=== PATIENT | male | born 1950 | race Caucasian/White ===

== ENCOUNTER 2016-10-12 13:14 | Outpatient (CLI) | payer MEDICARE, OTHER | END 2016-10-12 23:59 | DX: N05.9 Unspecified nephritic syndrome with unspecified morphologic changes (principal); D70.9 Neutropenia, unspecified; R80.9 Proteinuria, unspecified; D63.1 Anemia in chronic kidney disease ==

== ENCOUNTER 2017-01-21 11:41 | Outpatient (CLI) | payer MEDICARE, OTHER ==
--- NOTE | 2017-01-21 13:38 | CT Report ---
LOW-DOSE CT CHEST FOR LUNG CANCER SCREENIN01/21/2017 CLINICAL INDICATION: A 67-year-old asymptomatic current smoker with 45-pack year history of smoking for screening. TECHNIQUE: Axial CT images of the chest were obtained without intravenous contrast, using low-dose s creening technique. FINDINGS: The heart and great vessels demonstrate mild atherosclerotic calcification. No hilar or m ediastinal lymphadenopathy is present. The lungs are clear. No effusion or pneumothorax is present. Limited evaluation of upper abdominal structures demonstrates normal adrenal glands. Osseous struc tures demonstrate degenerative changes. IMPRESSION: NEGATIVE EXAMINATION. RECOMMENDATION: Continue annual screening with low-dose CT in 12 months. Lung-RADS category 1, negative. In accordance with CT protocol optimization, one or more of the following dose reduction techniques w ere utilized for this exam: automated exposure control, adjustment of mA and/or KV based on patient size, or use of iterative reconstructive technique. JOB #: [id number] EXT JOB #:[id number]
== END 2017-01-21 11:42 | disposition home or self-care (01) ==
LOC: DI 11:41
PROVIDERS: ATTEND Physician Assistant Medical
DX: Z12.2 Encounter for screening for malignant neoplasm of respiratory organs (principal); F17.210 Nicotine dependence, cigarettes, uncomplicated

== ENCOUNTER 2017-02-15 08:00 | Outpatient (CLI) | payer MEDICARE, OTHER ==
[2017-02-15 13:57] LABS: HCT - HEMATOCRIT 38.1 % (42.0-52.0); HGB - HEMOGLOBIN 12.9 g/dL (14.0-18.0); MEAN CORPUSCULAR HEMOGLOBIN 32.9 pg (27.0-31.0); RED BLOOD COUNT 3.93 10^6/uL (4.70-6.10); RED CELL DISTRIBUTION WIDTH 13.3 % (12.0-15.0); WHITE BLOOD COUNT 6.3 x10^3/uL (4.8-10.8)
[2017-02-15 14:09] LABS: CALCIUM 9.4 mg/dL (8.5-10.3); CREATININE 1.4 mg/dL (0.6-1.2); PHOSPHORUS 4.1 mg/dL (2.5-4.6); POTASSIUM 4.2 mmol/L (3.5-5.0)
== END 2017-02-15 08:01 | disposition home or self-care (01) ==
LOC: LAB.WCP 08:00
PROVIDERS: ATTEND Internal Medicine Nephrology
DX: N05.9 Unspecified nephritic syndrome with unspecified morphologic changes (principal); N25.81 Secondary hyperparathyroidism of renal origin; N25.0 Renal osteodystrophy; R80.9 Proteinuria, unspecified
CPT/HCPCS: 36415; 80048; 82570; 83970; 84100; 84156

== ENCOUNTER 2017-04-11 14:51 | Outpatient (CLI) | payer MEDICARE, OTHER ==
[2017-04-11 19:33] LABS: HEMOGLOBIN A1C 1.03 g/dL
== END 2017-04-11 14:52 | disposition home or self-care (01) ==
LOC: LAB.WCP 14:51
PROVIDERS: ATTEND Physician Assistant Medical
DX: E55.9 Vitamin D deficiency, unspecified (principal); E11.9 Type 2 diabetes mellitus without complications
CPT/HCPCS: 36415; 82306; 83036

== ENCOUNTER 2017-07-08 08:00 | Outpatient (CLI) | payer MEDICARE, OTHER ==
[2017-07-08 13:35] LABS: ALBUMIN/GLOBULIN RATIO 1.2 (1.0-2.2); BILIRUBIN,TOTAL 0.9 mg/dL (0.2-1.0); CREATININE 1.4 mg/dL (0.6-1.2); POTASSIUM 3.8 mmol/L (3.5-5.0)
[2017-07-08 13:58] LABS: HEMOGLOBIN A1C 1.08 g/dL
== END 2017-07-08 08:01 | disposition home or self-care (01) ==
LOC: LAB.WCP 08:00
PROVIDERS: ATTEND Physician Assistant Medical
DX: E11.9 Type 2 diabetes mellitus without complications (principal); Z12.5 Encounter for screening for malignant neoplasm of prostate
CPT/HCPCS: 36415; 80053; 82043; 83036; G0103; 84153

== ENCOUNTER 2017-10-10 08:00 | Outpatient (CLI) | payer MEDICARE, OTHER ==
[2017-10-10 14:09] LABS: ALBUMIN/GLOBULIN RATIO 1.3 (1.0-2.2); ALKALINE PHOSPHATASE 51 IU/L (42-121); ALT ALANINE AMINOTRANSFERASE 22 IU/L (10-60); AST ASPARTATE AMINOTRANSFERASE 25 IU/L (10-42); BILIRUBIN,TOTAL 0.6 mg/dL (0.2-1.0); BUN - BLOOD UREA NITROGEN 27 mg/dL (6-20); CALCIUM 9.4 mg/dL (8.5-10.3); CARBON DIOXIDE - CO2 25 mmol/L (21-32); CHLORIDE 103 mmol/L (101-111); CHOL/HDL RATIO 4.2 (<5.0); CHOLESTEROL 161 mg/dL; CREATININE 1.7 mg/dL (0.6-1.2); GFR - MDRD 40 (>89); GLUCOSE 121 mg/dL (70-100); HDL CHOLESTEROL 38 mg/dL; LDL CHOLESTEROL,CALCULATED 92 mg/dL; LDL/HDL RATIO 2.4 (<3.6); SODIUM 140 mmol/L (135-145); TOTAL PROTEIN 7.2 g/dL (6.7-8.2); VLDL CHOLESTEROL 31 mg/dL
[2017-10-10 14:58] LABS: HB2 TOTAL 14.5 g/dL; HEMOGLOBIN A1C 0.88 g/dL; HEMOGLOBIN A1C % 7.7 % (4.6-6.2)
== END 2017-10-10 08:01 | disposition home or self-care (01) ==
LOC: LAB.WCP 08:00
PROVIDERS: ATTEND Physician Assistant Medical
DX: E11.9 Type 2 diabetes mellitus without complications (principal)
CPT/HCPCS: 36415; 80053; 80061; 83036; 83721

== ENCOUNTER 2018-01-13 08:00 | Outpatient (CLI) | payer MEDICARE, OTHER ==
[2018-01-13 12:32] LABS: ALBUMIN 3.8 g/dL (3.2-5.5); ALBUMIN/GLOBULIN RATIO 1.1 (1.0-2.2); ALKALINE PHOSPHATASE 58 IU/L (42-121); ALT ALANINE AMINOTRANSFERASE 27 IU/L (10-60); AST ASPARTATE AMINOTRANSFERASE 27 IU/L (10-42); BILIRUBIN,TOTAL 0.8 mg/dL (0.2-1.0); BUN - BLOOD UREA NITROGEN 33 mg/dL (6-20); CALCIUM 8.9 mg/dL (8.5-10.3); CARBON DIOXIDE - CO2 25 mmol/L (21-32); CHLORIDE 103 mmol/L (101-111); CHOL/HDL RATIO 4.1 (<5.0); CHOLESTEROL 162 mg/dL; CREATININE 1.5 mg/dL (0.6-1.2); GFR - MDRD 46 (>89); GLUCOSE 149 mg/dL (70-100); HDL CHOLESTEROL 40 mg/dL; LDL CHOLESTEROL,CALCULATED 94 mg/dL; LDL/HDL RATIO 2.4 (<3.6); SODIUM 134 mmol/L (135-145); TOTAL PROTEIN 7.3 g/dL (6.7-8.2); VLDL CHOLESTEROL 28 mg/dL
[2018-01-13 12:34] LABS: HB2 TOTAL 15.3 g/dL; HEMOGLOBIN A1C % 8.1 % (4.6-6.2)
== END 2018-01-13 08:01 | disposition home or self-care (01) ==
LOC: LAB.WCP 08:00
PROVIDERS: ATTEND Physician Assistant Medical
DX: E11.9 Type 2 diabetes mellitus without complications (principal)
CPT/HCPCS: 36415; 80053; 80061; 83036; 83721

== ENCOUNTER 2018-01-28 13:18 | Outpatient (CLI) | payer MEDICARE, OTHER ==
--- NOTE | 2018-01-28 14:44 | CT Report ---
Procedure Date: 01/28/2018 Accession Number: [id number] / [id number] Procedure: CT - Chest/Lung Screen Low Dose W/O CPT Code: FULL RESULT: EXAM CT LUNG SCREEN EXAM DATE: 01/28/2018 01:45 PM. HISTORY: 68-year-old patient with [id number] smoking history. Currently smoking: Yes. COMPARISON: 01/21/2017. TECHNIQUE: CT examination of the entire thorax without contrast was performed using low-dose technique. Thin section coronal, axial, sagittal and MIP axial images were obtained. In accordance with CT protocol optimization, one or more of the following dose reduction techniques were utilized for this exam: automated exposure control, adjustment of mA and/or KV based on patient size, or use of iterative reconstructive technique. FINDINGS: Nodules: Right upper lobe: None. Right middle lobe: 2 mm nodule (4/72), unchanged. Right lower lobe: None. Left upper lobe: None. Left lower lobe: None. Emphysema: Mild upper lung predominant emphysema Pleura: Unremarkable. Aorta: Normal caliber. Atheromatous slight plaque of the arch. Mediastinum: Unremarkable. Coronary calcifications: Three-vessel coronary artery calcifications noted. Other pulmonary findings: Right greater than left apical pulmonary fibronodular scarring. Mild bilateral bronchial wall thickening could reflect chronic reactive airways or bronchitis. Other extrapulmonary findings: None. IMPRESSION: Lung-RADS ASSESSMENT CATEGORY: 2 - benign appearance and behavior Probability of malignancy: Less than 1% RECOMMENDATION: Recommended follow up with repeat low-dose noncontrast chest CT in 12 months for surveillance per lung RADS guidelines. RADIA
== END 2018-01-28 13:19 | disposition home or self-care (01) ==
LOC: DI 13:18
PROVIDERS: ATTEND Physician Assistant Medical
DX: Z12.2 Encounter for screening for malignant neoplasm of respiratory organs (principal); F17.210 Nicotine dependence, cigarettes, uncomplicated

== ENCOUNTER 2018-03-03 10:17 | Outpatient (CLI) | payer MEDICARE, OTHER ==
[2018-03-03 18:53] LABS: HGB - HEMOGLOBIN 12.8 g/dL (14.0-18.0); MEAN CORPUSCULAR HGB CONC 33.1 g/dL (32.0-36.0); MEAN CORPUSCULAR VOLUME 99.8 fL (80.0-94.0); MEAN PLATELET VOLUME 8.5 fL (7.4-11.4); RED BLOOD COUNT 3.86 10^6/uL (4.70-6.10); RED CELL DISTRIBUTION WIDTH 13.8 % (12.0-15.0)
[2018-03-03 18:55] LABS: CALCIUM 8.7 mg/dL (8.5-10.3); CREATININE 1.6 mg/dL (0.6-1.2)
== END 2018-03-03 10:18 | disposition home or self-care (01) ==
LOC: LAB.WCP 10:17
PROVIDERS: ATTEND Internal Medicine Nephrology
DX: N05.9 Unspecified nephritic syndrome with unspecified morphologic changes (principal); D70.9 Neutropenia, unspecified; D63.1 Anemia in chronic kidney disease
CPT/HCPCS: 36415; 80048; 85027

== ENCOUNTER 2018-03-11 08:00 | Outpatient (CLI) | payer MEDICARE, OTHER ==
[2018-03-11 13:27] LABS: CREATININE,URINE 123.3 mg/dL; PROTEIN/CREATININE RATIO,URINE 0.9 (<=0.2)
== END 2018-03-11 08:01 | disposition home or self-care (01) ==
LOC: LAB.WCP 08:00
PROVIDERS: ATTEND Internal Medicine Nephrology
DX: R80.9 Proteinuria, unspecified (principal)
CPT/HCPCS: 82570; 84156

== ENCOUNTER 2018-05-02 07:52 | Outpatient (CLI) | payer MEDICARE, OTHER ==
[2018-05-02 12:50] LABS: CALCIUM 9.1 mg/dL (8.5-10.3); CREATININE 1.6 mg/dL (0.6-1.2)
[2018-05-02 13:53] LABS: HB2 TOTAL 14.2 g/dL; HEMOGLOBIN A1C 0.93 g/dL; HEMOGLOBIN A1C % 8.1 % (4.6-6.2)
== END 2018-05-02 07:53 | disposition home or self-care (01) ==
LOC: LAB.WCP 07:52
PROVIDERS: ATTEND Physician Assistant Medical
DX: E11.9 Type 2 diabetes mellitus without complications (principal)
CPT/HCPCS: 36415; 80048; 83036

== ENCOUNTER 2018-07-31 12:17 | Outpatient (CLI) | payer MEDICARE, OTHER ==
[2018-07-31 14:15] LABS: ALBUMIN 3.9 g/dL (3.2-5.5); ALBUMIN/GLOBULIN RATIO 1.2 (1.0-2.2); ALKALINE PHOSPHATASE 67 IU/L (42-121); ALT ALANINE AMINOTRANSFERASE 25 IU/L (10-60); AST ASPARTATE AMINOTRANSFERASE 25 IU/L (10-42); BILIRUBIN,TOTAL 0.5 mg/dL (0.2-1.0); BUN - BLOOD UREA NITROGEN 26 mg/dL (6-20); CALCIUM 8.5 mg/dL (8.5-10.3); CARBON DIOXIDE - CO2 23 mmol/L (21-32); CHLORIDE 106 mmol/L (101-111); CHOL/HDL RATIO 4.4 (<5.0); CHOLESTEROL 148 mg/dL; CREATININE 1.4 mg/dL (0.6-1.2); GFR - MDRD 50 (>89); GLUCOSE 105 mg/dL (70-100); HDL CHOLESTEROL 34 mg/dL; LDL CHOLESTEROL,CALCULATED 78 mg/dL; LDL/HDL RATIO 2.3 (<3.6); SODIUM 137 mmol/L (135-145); TOTAL PROTEIN 7.2 g/dL (6.7-8.2); VLDL CHOLESTEROL 36 mg/dL
[2018-07-31 18:03] LABS: HB2 TOTAL 13.8 g/dL; HEMOGLOBIN A1C 0.88 g/dL
== END 2018-07-31 23:59 | disposition home or self-care (01) ==
LOC: LAB.WCP 12:17
PROVIDERS: ATTEND Physician Assistant Medical
DX: E11.9 Type 2 diabetes mellitus without complications (principal); Z12.5 Encounter for screening for malignant neoplasm of prostate; E78.5 Hyperlipidemia, unspecified
CPT/HCPCS: 36415; 80053; 80061; 83036; G0103; 83721; 84153

== ENCOUNTER 2018-11-10 08:00 | Outpatient (CLI) | payer MEDICARE, OTHER ==
[2018-11-10 13:13] LABS: CALCIUM 9.1 mg/dL (8.5-10.3); CREATININE 1.5 mg/dL (0.6-1.2)
[2018-11-10 13:24] LABS: HB2 TOTAL 14.6 g/dL; HEMOGLOBIN A1C 1.37 g/dL; HEMOGLOBIN A1C % 10.7 % (4.6-6.2)
== END 2018-11-10 23:59 | disposition home or self-care (01) ==
LOC: LAB.WCP 08:00
PROVIDERS: ATTEND Physician Assistant Medical
DX: E11.9 Type 2 diabetes mellitus without complications (principal)
CPT/HCPCS: 36415; 80048; 83036

== ENCOUNTER 2019-02-23 10:45 | Outpatient (CLI) | payer MEDICARE, OTHER ==
[2019-02-23 19:13] LABS: CALCIUM 9.2 mg/dL (8.5-10.3); CREATININE 1.6 mg/dL (0.6-1.2)
[2019-02-23 19:25] LABS: CREATININE,URINE 107.4 mg/dL; PROTEIN/CREATININE RATIO,URINE 1.2 (<=0.2)
[2019-02-23 19:53] LABS: HB2 TOTAL 13.7 g/dL; HEMOGLOBIN A1C 1.21 g/dL; HEMOGLOBIN A1C % 10.2 % (4.6-6.2)
== END 2019-02-23 10:46 | disposition home or self-care (01) ==
LOC: LAB.WCP 10:45
PROVIDERS: ATTEND Internal Medicine Nephrology
DX: N05.9 Unspecified nephritic syndrome with unspecified morphologic changes (principal); R80.9 Proteinuria, unspecified; E11.9 Type 2 diabetes mellitus without complications
CPT/HCPCS: 36415; 80048; 82570; 83036; 84156

== ENCOUNTER 2019-03-20 12:22 | Outpatient (CLI) | payer MEDICARE, OTHER ==
--- NOTE | 2019-03-20 14:44 | CT Report ---
Reason: TOBACCO ABUSE Procedure Date: 03/20/2019 Accession Number: [id number] / [id number] Procedure: CT - Low Dose Lung Cancer Screen CPT Code: FULL RESULT: EXAM CT LUNG SCREEN EXAM DATE: 03/20/2019 12:38 PM. HISTORY: 69-year-old patient with [id number] smoking history. Currently smoking: Yes. COMPARISON: CHEST SCREEN LOW DOSE W/O 01/28/2018 1:41 PM. TECHNIQUE: CT examination of the entire thorax without contrast was performed using low-dose technique. Thin section coronal, axial, sagittal and MIP axial images were obtained. In accordance with CT protocol optimization, one or more of the following dose reduction techniques were utilized for this exam: automated exposure control, adjustment of mA and/or KV based on patient size, or use of iterative reconstructive technique. FINDINGS: Nodules: Right upper lobe: 2 mm nodule image 54 series 4, unchanged. Right middle lobe: 2 mm nodule image 64 unchanged. Right lower lobe: None. Left upper lobe: 3 mm nodule image 51. Left lower lobe: None. Emphysema: Minimal. Pleura: Unremarkable. Aorta: Mildly calcified. Mediastinum: Unremarkable. Coronary calcifications: Moderate 3 vessel. Other pulmonary findings: None. Other extrapulmonary findings: None. IMPRESSION: Lung-RADS ASSESSMENT CATEGORY: 2 - Benign appearance or behavior. Probability of malignancy: Less than 1%. RECOMMENDATION: Continued annual low-dose chest CT. RADIA
== END 2019-03-20 12:23 | disposition home or self-care (01) ==
LOC: DI 12:22
PROVIDERS: ATTEND Physician Assistant Medical
DX: Z12.2 Encounter for screening for malignant neoplasm of respiratory organs (principal); F17.210 Nicotine dependence, cigarettes, uncomplicated

== ENCOUNTER 2019-05-29 07:40 | Outpatient (CLI) | payer MEDICARE, OTHER ==
[2019-05-29 13:06] LABS: ALBUMIN/GLOBULIN RATIO 1.1 (1.0-2.2); ALKALINE PHOSPHATASE 70 IU/L (42-121); ALT ALANINE AMINOTRANSFERASE 31 IU/L (10-60); AST ASPARTATE AMINOTRANSFERASE 26 IU/L (10-42); BILIRUBIN,TOTAL 1.1 mg/dL (0.2-1.0); BUN - BLOOD UREA NITROGEN 35 mg/dL (6-20); CALCIUM 9.1 mg/dL (8.5-10.3); CARBON DIOXIDE - CO2 24 mmol/L (21-32); CHLORIDE 106 mmol/L (101-111); CHOL/HDL RATIO 4.9 (<5.0); CHOLESTEROL 168 mg/dL; CREATININE 1.8 mg/dL (0.6-1.2); GFR - MDRD 37 (>89); GLUCOSE 145 mg/dL (70-100); HDL CHOLESTEROL 34 mg/dL; LDL CHOLESTEROL,CALCULATED 103 mg/dL; SODIUM 140 mmol/L (135-145); TOTAL PROTEIN 7.5 g/dL (6.7-8.2); VLDL CHOLESTEROL 31 mg/dL
[2019-05-29 13:26] LABS: HB2 TOTAL 15.3 g/dL; HEMOGLOBIN A1C 0.94 g/dL; HEMOGLOBIN A1C % 7.8 % (4.6-6.2)
== END 2019-05-29 23:59 | disposition home or self-care (01) ==
LOC: LAB.WCP 07:40
PROVIDERS: ATTEND Physician Assistant Medical
DX: E11.9 Type 2 diabetes mellitus without complications (principal)
CPT/HCPCS: 36415; 80053; 80061; 83036; 83721

== ENCOUNTER 2019-09-04 07:23 | Outpatient (CLI) | payer MEDICARE, OTHER ==
[2019-09-04 12:34] LABS: ALBUMIN 3.9 g/dL (3.2-5.5); ALBUMIN/GLOBULIN RATIO 1.1 (1.0-2.2); ALKALINE PHOSPHATASE 75 IU/L (42-121); ALT ALANINE AMINOTRANSFERASE 28 IU/L (10-60); AST ASPARTATE AMINOTRANSFERASE 24 IU/L (10-42); BILIRUBIN,TOTAL 0.9 mg/dL (0.2-1.0); BUN - BLOOD UREA NITROGEN 37 mg/dL (6-20); CARBON DIOXIDE - CO2 24 mmol/L (21-32); CHLORIDE 107 mmol/L (101-111); CHOL/HDL RATIO 4.7 (<5.0); CHOLESTEROL 159 mg/dL; CREATININE 1.7 mg/dL (0.6-1.2); GFR - MDRD 40 (>89); GLUCOSE 176 mg/dL (70-100); HDL CHOLESTEROL 34 mg/dL; LDL CHOLESTEROL,CALCULATED 96 mg/dL; LDL/HDL RATIO 2.8 (<3.6); SODIUM 137 mmol/L (135-145); TOTAL PROTEIN 7.3 g/dL (6.7-8.2); VLDL CHOLESTEROL 29 mg/dL
[2019-09-04 12:36] LABS: HB2 TOTAL 14.6 g/dL; HEMOGLOBIN A1C 0.94 g/dL
== END 2019-09-04 23:59 | disposition home or self-care (01) ==
LOC: LAB.WCP 07:23
PROVIDERS: ATTEND Physician Assistant Medical
DX: E11.9 Type 2 diabetes mellitus without complications (principal)
CPT/HCPCS: 36415; 80053; 80061; 83036; 83721

== ENCOUNTER 2019-12-18 08:00 | Outpatient (CLI) | payer MEDICARE, OTHER ==
[2019-12-18 13:28] LABS: HEMOGLOBIN A1C % 8.3 % (4.6-6.2)
[2019-12-18 14:09] LABS: CALCIUM 9.5 mg/dL (8.5-10.3); CREATININE 1.7 mg/dL (0.6-1.2)
== END 2019-12-18 23:59 | disposition home or self-care (01) ==
LOC: LAB.WCP 08:00
PROVIDERS: ATTEND Physician Assistant Medical
DX: E11.9 Type 2 diabetes mellitus without complications (principal)
CPT/HCPCS: 36415; 80048; 83036

== ENCOUNTER 2020-03-17 08:00 | Outpatient (CLI) | payer MEDICARE, OTHER ==
[2020-03-17 14:50] LABS: HB2 TOTAL 15.5 g/dL; HEMOGLOBIN A1C 0.87 g/dL; HEMOGLOBIN A1C % 7.3 % (4.6-6.2)
[2020-03-17 14:56] LABS: ALBUMIN 4.2 g/dL (3.2-5.5); ALBUMIN/GLOBULIN RATIO 1.3 (1.0-2.2); ALKALINE PHOSPHATASE 79 IU/L (42-121); ALT ALANINE AMINOTRANSFERASE 25 IU/L (10-60); AST ASPARTATE AMINOTRANSFERASE 25 IU/L (10-42); BILIRUBIN,TOTAL 0.5 mg/dL (0.2-1.0); BUN - BLOOD UREA NITROGEN 39 mg/dL (6-20); CALCIUM 9.5 mg/dL (8.5-10.3); CARBON DIOXIDE - CO2 23 mmol/L (21-32); CHLORIDE 107 mmol/L (101-111); CHOL/HDL RATIO 3.6 (<5.0); CHOLESTEROL 133 mg/dL; CREATININE 1.9 mg/dL (0.6-1.2); GLUCOSE 157 mg/dL (70-100); HDL CHOLESTEROL 37 mg/dL; LDL CHOLESTEROL,CALCULATED 77 mg/dL; LDL/HDL RATIO 2.1 (<3.6); SODIUM 136 mmol/L (135-145); TOTAL PROTEIN 7.5 g/dL (6.7-8.2); VLDL CHOLESTEROL 19 mg/dL
== END 2020-03-17 23:59 | disposition home or self-care (01) ==
LOC: LAB.WCP 08:00
PROVIDERS: ATTEND Physician Assistant Medical
DX: E11.9 Type 2 diabetes mellitus without complications (principal)
CPT/HCPCS: 36415; 80053; 80061; 83036; 83721

== ENCOUNTER 2020-03-21 08:00 | Outpatient (CLI) | payer MEDICARE, OTHER ==
[2020-03-21 14:05] LABS: CREATININE,URINE 110.7 mg/dL; MICROALBUM/CREATININE RATIO,UR 1218.6 ug/mg (<30.0); MICROALBUMIN,URINE 134.9 mg/dL (0-300.0)
== END 2020-03-21 23:59 | disposition home or self-care (01) ==
LOC: LAB.WCP 08:00
PROVIDERS: ATTEND Internal Medicine Nephrology
DX: N05.9 Unspecified nephritic syndrome with unspecified morphologic changes (principal); R80.9 Proteinuria, unspecified
CPT/HCPCS: 82043; 82570

== ENCOUNTER 2020-04-22 12:08 | Outpatient (CLI) | payer MEDICARE, OTHER ==
--- NOTE | 2020-04-22 16:41 | CT Report ---
PROCEDURE: Low Dose Lung Cancer Screen INDICATIONS: ENCNTR SCREEN FOR MALIGNANT NEOPLASM OF RESPIRATOR TECHNIQUE: Noncontrast low-dose 5 mm thick sections acquired from the pulmonary apices to the posterior costophr enic angles. 7 mm thick coronal and sagittal MIP reformats were then acquired. For radiation dose r eduction, the following was used: automated exposure control, adjustment of mA and/or kV according t o patient size. COMPARISON: None. FINDINGS: Image quality: Excellent. Lungs and pleura: No acute consolidation pleural effusion or pneumothorax. 2 mm nodule present withi n the anterior left upper lobe. There is also a 1 mm nodule seen in the right upper lobe on image 108 /4. Mediastinum: Heart size is normal. Coronary artery calcifications. No pericardial effusion. No medi astinal adenopathy by size criteria. Thoracic aorta and central pulmonary arteries are normal in siz e. Esophagus is normal in caliber. No hiatal hernia. Bones and chest wall: No suspicious bony lesions. No vertebral body compression fractures. No axil jaden or supraclavicular adenopathy by size criteria. The thyroid is normal in size. Abdomen: Visualized upper abdomen solid organs and bowel loops appear normal in the absence of contr ast. IMPRESSION: Few sub-5 mm pulmonary nodules as detailed above. Lung RADS 2. Follow-up lung screening chest CT in o ne year is recommended. Coronary artery disease Reviewed by: Anshul Austin MD on 04/22/2020 4:39 PM PDT Approved by: Anshul Austin MD on 04/22/2020 4:39 PM PDT Station ID: [id number]
== END 2020-04-22 12:09 | disposition home or self-care (01) ==
LOC: DI 12:08
PROVIDERS: ATTEND Physician Assistant Medical
DX: Z12.2 Encounter for screening for malignant neoplasm of respiratory organs (principal); R91.8 Other nonspecific abnormal finding of lung field; F17.210 Nicotine dependence, cigarettes, uncomplicated
CPT/HCPCS: G0297 ×2

== ENCOUNTER 2020-06-29 08:00 | Outpatient (CLI) | payer MEDICARE, OTHER ==
[2020-06-29 12:21] LABS: ALBUMIN 4.1 g/dL (3.2-5.5); ALBUMIN/GLOBULIN RATIO 1.3 (1.0-2.2); ALKALINE PHOSPHATASE 68 IU/L (42-121); ALT ALANINE AMINOTRANSFERASE 31 IU/L (10-60); AST ASPARTATE AMINOTRANSFERASE 25 IU/L (10-42); BILIRUBIN,TOTAL 0.7 mg/dL (0.2-1.0); BUN - BLOOD UREA NITROGEN 41 mg/dL (6-20); CALCIUM 8.6 mg/dL (8.5-10.3); CARBON DIOXIDE - CO2 23 mmol/L (21-32); CHLORIDE 104 mmol/L (101-111); CHOL/HDL RATIO 4.3 (<5.0); CHOLESTEROL 151 mg/dL; CREATININE 1.8 mg/dL (0.6-1.2); GLUCOSE 284 mg/dL (70-100); HDL CHOLESTEROL 35 mg/dL; LDL CHOLESTEROL,CALCULATED 89 mg/dL; LDL/HDL RATIO 2.5 (<3.6); SODIUM 134 mmol/L (135-145); TOTAL PROTEIN 7.3 g/dL (6.7-8.2); VLDL CHOLESTEROL 27 mg/dL
[2020-06-29 12:23] LABS: HEMOGLOBIN A1c% 9.1 % (4.27-6.07)
== END 2020-06-29 23:59 | disposition home or self-care (01) ==
LOC: LAB.WCP 08:00
PROVIDERS: ATTEND Physician Assistant Medical
DX: E11.9 Type 2 diabetes mellitus without complications (principal)
CPT/HCPCS: 36415; 80053; 80061; 83036; 83721

== ENCOUNTER 2020-09-29 08:00 | Outpatient (CLI) | payer MEDICARE, OTHER ==
[2020-09-29 13:47] LABS: ALBUMIN 4.3 g/dL (3.2-5.5); ALBUMIN/GLOBULIN RATIO 1.3 (1.0-2.2); ALKALINE PHOSPHATASE 86 IU/L (42-121); ALT ALANINE AMINOTRANSFERASE 32 IU/L (10-60); AST ASPARTATE AMINOTRANSFERASE 25 IU/L (10-42); BUN - BLOOD UREA NITROGEN 31 mg/dL (6-20); CALCIUM 9.6 mg/dL (8.5-10.3); CARBON DIOXIDE - CO2 24 mmol/L (21-32); CHLORIDE 103 mmol/L (101-111); CHOL/HDL RATIO 4.1 (<5.0); CHOLESTEROL 167 mg/dL; CREATININE 1.7 mg/dL (0.6-1.2); GLUCOSE 197 mg/dL (70-100); HDL CHOLESTEROL 41 mg/dL; LDL CHOLESTEROL,CALCULATED 90 mg/dL; LDL/HDL RATIO 2.2 (<3.6); TOTAL PROTEIN 7.5 g/dL (6.7-8.2); VLDL CHOLESTEROL 36 mg/dL
[2020-09-29 14:47] LABS: HEMOGLOBIN A1c% 9.2 % (4.27-6.07)
== END 2020-09-29 23:59 | disposition home or self-care (01) ==
LOC: LAB.WCP 08:00
PROVIDERS: ATTEND Physician Assistant Medical
DX: E11.9 Type 2 diabetes mellitus without complications (principal)
CPT/HCPCS: 36415; 80053; 80061; 83036; 83721

== ENCOUNTER 2020-10-28 08:00 | Outpatient (CLI) | payer MEDICARE, OTHER ==
[2020-10-28 12:34] LABS: CALCIUM 9.3 mg/dL (8.5-10.3); CREATININE 1.7 mg/dL (0.6-1.2); PHOSPHORUS 3.3 mg/dL (2.5-4.6); POTASSIUM 4.4 mmol/L (3.5-5.0)
== END 2020-10-28 23:59 | disposition home or self-care (01) ==
LOC: LAB.WCP 08:00
PROVIDERS: ATTEND Internal Medicine Nephrology
DX: N05.9 Unspecified nephritic syndrome with unspecified morphologic changes (principal); E83.30 Disorder of phosphorus metabolism, unspecified; N25.81 Secondary hyperparathyroidism of renal origin
CPT/HCPCS: 36415; 80048; 83970; 84100

== ENCOUNTER 2020-12-29 08:00 | Outpatient (CLI) | payer MEDICARE, OTHER ==
[2020-12-29 12:27] LABS: CALCIUM 9.5 mg/dL (8.5-10.3); CREATININE 1.8 mg/dL (0.6-1.2); POTASSIUM 4.6 mmol/L (3.5-5.0)
[2020-12-29 12:32] LABS: ESTIMATED AVERAGE GLUCOSE 171 mg/dL (70-100); HEMOGLOBIN A1c% 7.6 % (4.27-6.07)
== END 2020-12-29 23:59 | disposition home or self-care (01) ==
LOC: LAB.WCP 08:00
PROVIDERS: ATTEND Physician Assistant Medical
DX: E11.9 Type 2 diabetes mellitus without complications (principal)
CPT/HCPCS: 36415; 80048; 83036

== ENCOUNTER → 2021-03-30 | Outpatient (CLI) | payer MEDICARE, OTHER ==
[2021-03-30 12:27] LABS: ALBUMIN 4.2 g/dL (3.2-5.5); ALBUMIN/GLOBULIN RATIO 1.2 (1.0-2.2); ALKALINE PHOSPHATASE 69 IU/L (42-121); ALT ALANINE AMINOTRANSFERASE 31 IU/L (10-60); AST ASPARTATE AMINOTRANSFERASE 28 IU/L (10-42); BILIRUBIN,TOTAL 0.9 mg/dL (0.2-1.0); BUN - BLOOD UREA NITROGEN 31 mg/dL (6-20); CALCIUM 9.5 mg/dL (8.5-10.3); CARBON DIOXIDE - CO2 26 mmol/L (21-32); CHLORIDE 105 mmol/L (101-111); CHOL/HDL RATIO 4.5 (<5.0); CHOLESTEROL 176 mg/dL; CREATININE 1.8 mg/dL (0.6-1.2); GFR - MDRD 37 (>89); GLUCOSE 158 mg/dL (70-100); HDL CHOLESTEROL 39 mg/dL; LDL CHOLESTEROL,CALCULATED 111 mg/dL; LDL/HDL RATIO 2.8 (<3.6); POTASSIUM 4.7 mmol/L (3.5-5.0); SODIUM 141 mmol/L (135-145); TOTAL PROTEIN 7.6 g/dL (6.7-8.2); TRIGLYCERIDES 129 mg/dL; VLDL CHOLESTEROL 26 mg/dL
[2021-03-30 13:05] LABS: CREATININE,URINE 156.9 mg/dL; MICROALBUM/CREATININE RATIO,UR 948.4 ug/mg (<30.0); MICROALBUMIN,URINE 148.8 mg/dL (0-300.0)
[2021-03-30 13:06] LABS: ESTIMATED AVERAGE GLUCOSE 171 mg/dL (70-100); HEMOGLOBIN A1c% 7.6 % (4.27-6.07)
== END ==
LOC: LAB.WCP 07:10
PROVIDERS: ATTEND Physician Assistant Medical
DX: E11.9 Type 2 diabetes mellitus without complications (principal)
CPT/HCPCS: 36415; 80053; 80061; 82043; 82570; 83036; 83721

== ENCOUNTER 2021-07-03 07:12 | Outpatient (CLI) | payer MEDICARE, OTHER ==
[2021-07-03 12:43] LABS: ALBUMIN 4.4 g/dL (3.2-5.5); ALBUMIN/GLOBULIN RATIO 1.4 (1.0-2.2); ALKALINE PHOSPHATASE 63 IU/L (42-121); ALT ALANINE AMINOTRANSFERASE 28 IU/L (10-60); AST ASPARTATE AMINOTRANSFERASE 36 IU/L (10-42); BILIRUBIN,TOTAL 0.9 mg/dL (0.2-1.0); BUN - BLOOD UREA NITROGEN 31 mg/dL (6-20); CALCIUM 9.2 mg/dL (8.5-10.3); CARBON DIOXIDE - CO2 25 mmol/L (21-32); CHLORIDE 105 mmol/L (101-111); CHOL/HDL RATIO 3.2 (<5.0); CHOLESTEROL 121 mg/dL; CREATININE 1.9 mg/dL (0.6-1.2); GFR - MDRD 35 (>89); GLUCOSE 181 mg/dL (70-100); HDL CHOLESTEROL 38 mg/dL; LDL CHOLESTEROL,CALCULATED 56 mg/dL; LDL/HDL RATIO 1.5 (<3.6); POTASSIUM 5.1 mmol/L (3.5-5.0); SODIUM 140 mmol/L (135-145); TOTAL PROTEIN 7.5 g/dL (6.7-8.2); TRIGLYCERIDES 133 mg/dL; VLDL CHOLESTEROL 27 mg/dL
[2021-07-03 12:54] LABS: ESTIMATED AVERAGE GLUCOSE 177 mg/dL (70-100); HEMOGLOBIN A1c% 7.8 % (4.27-6.07)
== END 2021-07-03 23:59 | disposition home or self-care (01) ==
LOC: LAB.WCP 07:12
PROVIDERS: ATTEND Physician Assistant Medical
DX: E11.9 Type 2 diabetes mellitus without complications (principal)
CPT/HCPCS: 36415; 80053; 80061; 83036; 83721

== ENCOUNTER 2021-09-29 08:00 | Outpatient (CLI) | payer MEDICARE, OTHER ==
[2021-09-29 13:18] LABS: CALCIUM 8.6 mg/dL (8.5-10.3); CREATININE 1.9 mg/dL (0.6-1.2); POTASSIUM 4.1 mmol/L (3.5-5.0)
[2021-09-29 13:57] LABS: ESTIMATED AVERAGE GLUCOSE 180 mg/dL (70-100); HEMOGLOBIN A1c% 7.9 % (4.27-6.07)
== END 2021-09-29 08:01 | disposition home or self-care (01) ==
LOC: LAB.N 08:00
PROVIDERS: ATTEND Physician Assistant Medical
DX: E11.9 Type 2 diabetes mellitus without complications (principal)
CPT/HCPCS: 36415; 80048; 83036

== ENCOUNTER 2021-11-24 07:06 | Outpatient (CLI) | payer MEDICARE, OTHER ==
[2021-11-24 12:44] LABS: BASOPHILS # (AUTO) 0.1 10^3/uL (0.0-0.1); BASOPHILS % (AUTO) 0.8 %; EOSINOPHILS # (AUTO) 0.2 10^3/uL (0.0-0.7); EOSINOPHILS % (AUTO) 2.4 %; HCT - HEMATOCRIT 42.2 % (42.0-52.0); LYMPHOCYTES # (AUTO) 2.2 10^3/uL (1.5-3.5); LYMPHOCYTES % (AUTO) 28.3 %; MEAN CORPUSCULAR HEMOGLOBIN 32.4 pg (27.0-31.0); MEAN CORPUSCULAR HGB CONC 33.2 g/dL (32.0-36.0); MEAN CORPUSCULAR VOLUME 97.7 fL (80.0-94.0); MEAN PLATELET VOLUME 10.2 fL (7.4-11.4); MONOCYTES # (AUTO) 0.7 10^3/uL (0.0-1.0); MONOCYTES % (AUTO) 8.8 %; NEUTROPHILS # (AUTO) 4.5 10^3/uL (1.5-6.6); NEUTROPHILS % (AUTO) 59.6 %; PLT - PLATELET COUNT 225 10^3/uL (130-450); RED BLOOD COUNT 4.32 10^6/uL (4.70-6.10); WHITE BLOOD COUNT 7.6 x10^3/uL (4.8-10.8)
[2021-11-24 12:54] LABS: CALCIUM 8.9 mg/dL (8.5-10.3); CREATININE 1.6 mg/dL (0.6-1.2); POTASSIUM 4.3 mmol/L (3.5-5.0)
[2021-11-24 13:19] LABS: CREATININE,URINE 46.3 mg/dL; PROTEIN/CREATININE RATIO,URINE 1.8 (<=0.2)
== END 2021-11-24 07:07 | disposition home or self-care (01) ==
LOC: LAB.N 07:06
PROVIDERS: ATTEND Internal Medicine Nephrology
DX: N05.9 Unspecified nephritic syndrome with unspecified morphologic changes (principal); D70.9 Neutropenia, unspecified; D63.1 Anemia in chronic kidney disease; R80.9 Proteinuria, unspecified
CPT/HCPCS: 36415; 80048; 82570; 84156; 85025

== ENCOUNTER 2021-12-12 11:40 | Outpatient (CLI) | payer MEDICARE, OTHER ==
--- NOTE | 2021-12-12 13:53 | CT Report ---
PROCEDURE: Low Dose Lung Cancer Screen INDICATIONS: CIGARETTE SMOKER TECHNIQUE: Noncontrast low-dose images were acquired from the pulmonary apices to the posterior costophrenic ang les. Multiplanar MIP reformats were then acquired. For radiation dose reduction, the following was used: automated exposure control, adjustment of mA and/or kV according to patient size. Prior Cancer: None Lung Rad: 1 Lung Recommendation: Annual CT screening Lung Significant Findings: None COMPARISON: CT chest 04/22/2020 FINDINGS: Image quality: Excellent. Lungs and pleura: Mild emphysematous changes. No effusions or consolidations. No nodules are identif ied. Previous identified nodules are not visualized on current exam. Mediastinum: Heart size is normal. No pericardial effusion. No mediastinal adenopathy by size crit eria. Thoracic aorta and central pulmonary arteries are normal in size. Esophagus is normal in venkata adriane. No hiatal hernia. Bones and chest wall: No suspicious bony lesions. No vertebral body compression fractures. No axil jaden or supraclavicular adenopathy by size criteria. The thyroid is normal in size and there are no incidental findings. Abdomen: Visualized upper abdomen solid organs and bowel loops appear normal in the absence of contr ast. IMPRESSION: Mild emphysematous changes. No nodules, consolidations or effusions. CLINICAL RECOMMENDATION STATEMENTS: In patients <35 years with an ITN detected on CT, MRI, or extrathyroidal ultrasound, the Committee re commends further evaluation with dedicated thyroid ultrasound if the nodule is "e1 cm and has no susp icious imaging features, and if the patient has normal life expectancy. In patients "e35 years with an ITN detected on CT, MRI, or extrathyroidal ultrasound, the Committee r ecommends further evaluation with dedicated thyroid ultrasound if the nodule is "e1.5 cm and has no s uspicious imaging features, and if the patient has normal life expectancy. (ACR, 2014) Reviewed by: Elvie Barton MD on 12/12/2021 12:51 PM BEULAH Approved by: Elvie Barton MD on 12/12/2021 12:51 PM AKEUGENE Station ID: [id number] Lung-Rad Lung-Recommendation [id number]
== END 2021-12-12 11:41 | disposition home or self-care (01) ==
LOC: DI 11:40
PROVIDERS: ATTEND Physician Assistant Medical
DX: Z12.2 Encounter for screening for malignant neoplasm of respiratory organs (principal); J43.9 Emphysema, unspecified; F17.210 Nicotine dependence, cigarettes, uncomplicated

== ENCOUNTER 2021-12-28 07:07 | Outpatient (CLI) | payer MEDICARE, OTHER ==
[2021-12-28 12:10] LABS: CALCIUM 9.3 mg/dL (8.5-10.3); CREATININE 2.3 mg/dL (0.6-1.2); POTASSIUM 4.6 mmol/L (3.5-5.0)
[2021-12-28 12:44] LABS: ESTIMATED AVERAGE GLUCOSE 183 mg/dL (70-100)
== END 2021-12-28 07:08 | disposition home or self-care (01) ==
LOC: LAB.N 07:07
PROVIDERS: ATTEND Physician Assistant Medical
DX: E11.9 Type 2 diabetes mellitus without complications (principal)
CPT/HCPCS: 36415; 80048; 83036

== ENCOUNTER 2022-09-04 07:08 | Outpatient (CLI) | payer MEDICARE, OTHER ==
[2022-09-04 12:04] LABS: CALCIUM 9.4 mg/dL (8.5-10.3); CREATININE 1.9 mg/dL (0.6-1.2); POTASSIUM 4.3 mmol/L (3.5-5.0)
[2022-09-04 12:30] LABS: ESTIMATED AVERAGE GLUCOSE 209 mg/dL (70-100); HEMOGLOBIN A1c% 8.9 % (4.27-6.07)
== END 2022-09-04 07:09 | disposition home or self-care (01) ==
LOC: LAB.N 07:08
PROVIDERS: ATTEND Physician Assistant Medical
DX: E11.9 Type 2 diabetes mellitus without complications (principal)
CPT/HCPCS: 36415; 80048; 83036

== ENCOUNTER 2022-12-03 07:26 | Outpatient (CLI) | payer MEDICARE, OTHER ==
[2022-12-03 12:33] LABS: ESTIMATED AVERAGE GLUCOSE 206 mg/dL (70-100); HEMOGLOBIN A1c% 8.8 % (4.27-6.07)
[2022-12-03 12:41] LABS: ALBUMIN 4.3 g/dL (3.2-5.5); ALBUMIN/GLOBULIN RATIO 1.4 (1.0-2.2); ALKALINE PHOSPHATASE 59 IU/L (42-121); ALT ALANINE AMINOTRANSFERASE 37 IU/L (10-60); AST ASPARTATE AMINOTRANSFERASE 30 IU/L (10-42); BILIRUBIN,TOTAL 0.5 mg/dL (0.2-1.0); BUN - BLOOD UREA NITROGEN 29 mg/dL (6-20); CARBON DIOXIDE - CO2 26 mmol/L (21-32); CHLORIDE 109 mmol/L (101-111); CHOL/HDL RATIO 3.5 (<5.0); CHOLESTEROL 136 mg/dL; CREATININE 1.7 mg/dL (0.6-1.2); GFR - MDRD 40 (>89); GLUCOSE 210 mg/dL (70-100); HDL CHOLESTEROL 39 mg/dL; LDL CHOLESTEROL,CALCULATED 75 mg/dL; LDL/HDL RATIO 1.9 (<3.6); POTASSIUM 4.2 mmol/L (3.5-5.0); SODIUM 139 mmol/L (135-145); TOTAL PROTEIN 7.4 g/dL (6.7-8.2); TRIGLYCERIDES 112 mg/dL; VLDL CHOLESTEROL 22 mg/dL
== END 2022-12-03 07:27 | disposition home or self-care (01) ==
LOC: LAB.N 07:26
PROVIDERS: ATTEND Physician Assistant Medical
DX: E11.9 Type 2 diabetes mellitus without complications (principal)
CPT/HCPCS: 36415; 80053; 80061; 83036; 83721

== ENCOUNTER 2023-03-07 07:23 | Outpatient (CLI) | payer MEDICARE, OTHER ==
[2023-03-07 13:09] LABS: CALCIUM 9.5 mg/dL (8.5-10.3); CREATININE 1.8 mg/dL (0.6-1.3); POTASSIUM 4.4 mmol/L (3.5-4.5)
[2023-03-07 13:29] LABS: ESTIMATED AVERAGE GLUCOSE 197 mg/dL (70-100); HEMOGLOBIN A1c% 8.5 % (4.27-6.07)
== END 2023-03-07 07:24 | disposition home or self-care (01) ==
LOC: LAB.N 07:23
PROVIDERS: ATTEND Physician Assistant Medical
DX: E11.9 Type 2 diabetes mellitus without complications (principal)
CPT/HCPCS: 36415; 80048; 83036

== ENCOUNTER 2023-06-04 07:40 | Outpatient (CLI) | payer MEDICARE, OTHER ==
[2023-06-04 12:35] LABS: BASOPHILS # (AUTO) 0.1 10^3/uL (0.0-0.1); BASOPHILS % (AUTO) 1.3 %; EOSINOPHILS # (AUTO) 0.3 10^3/uL (0.0-0.7); EOSINOPHILS % (AUTO) 3.5 %; HGB - HEMOGLOBIN 14.2 g/dL (14.0-18.0); LYMPHOCYTES # (AUTO) 2.3 10^3/uL (1.5-3.5); LYMPHOCYTES % (AUTO) 32.2 %; MEAN CORPUSCULAR HEMOGLOBIN 31.6 pg (27.0-31.0); MEAN CORPUSCULAR HGB CONC 32.3 g/dL (32.0-36.0); MEAN PLATELET VOLUME 10.3 fL (7.4-11.4); MONOCYTES # (AUTO) 0.7 10^3/uL (0.0-1.0); MONOCYTES % (AUTO) 9.9 %; NEUTROPHILS # (AUTO) 3.7 10^3/uL (1.5-6.6); NEUTROPHILS % (AUTO) 52.8 %; PLT - PLATELET COUNT 211 10^3/uL (130-450); RED BLOOD COUNT 4.49 10^6/uL (4.70-6.10); RED CELL DISTRIBUTION WIDTH 13.4 % (12.0-15.0); WHITE BLOOD COUNT 7.1 x10^3/uL (4.8-10.8)
[2023-06-04 12:36] LABS: ESTIMATED AVERAGE GLUCOSE 183 mg/dL (70-100)
[2023-06-04 12:58] LABS: ALBUMIN 4.4 g/dL (3.2-5.5); ALBUMIN/GLOBULIN RATIO 1.5 (1.0-2.2); ALKALINE PHOSPHATASE 56 IU/L (42-121); ALT ALANINE AMINOTRANSFERASE 22 IU/L (10-60); AST ASPARTATE AMINOTRANSFERASE 21 IU/L (10-42); BILIRUBIN,TOTAL 0.5 mg/dL (0.2-1.0); BUN - BLOOD UREA NITROGEN 34 mg/dL (6-20); CALCIUM 9.6 mg/dL (8.5-10.3); CARBON DIOXIDE - CO2 28 mmol/L (21-32); CHLORIDE 108 mmol/L (101-111); CHOL/HDL RATIO 3.2 (<5.0); CHOLESTEROL 125 mg/dL; GFR - MDRD 33 (>89); GLUCOSE 177 mg/dL (74-104); HDL CHOLESTEROL 39 mg/dL; LDL CHOLESTEROL,CALCULATED 61 mg/dL; LDL/HDL RATIO 1.6 (<3.6); POTASSIUM 4.7 mmol/L (3.5-4.5); SODIUM 140 mmol/L (135-145); TOTAL PROTEIN 7.3 g/dL (6.4-8.9); TRIGLYCERIDES 126 mg/dL (48-352); VLDL CHOLESTEROL 25 mg/dL
== END 2023-06-04 07:41 | disposition home or self-care (01) ==
LOC: LAB.N 07:40
PROVIDERS: ATTEND Physician Assistant Medical
DX: E11.9 Type 2 diabetes mellitus without complications (principal); I10 Essential (primary) hypertension
CPT/HCPCS: 36415; 80053; 80061; 83036; 83721; 85025

== ENCOUNTER 2023-09-04 07:15 | Outpatient (CLI) | payer MEDICARE, OTHER ==
[2023-09-04 12:42] LABS: BASOPHILS # (AUTO) 0.1 10^3/uL (0.0-0.1); BASOPHILS % (AUTO) 1.1 %; EOSINOPHILS # (AUTO) 0.3 10^3/uL (0.0-0.7); EOSINOPHILS % (AUTO) 4.4 %; HCT - HEMATOCRIT 41.9 % (42.0-52.0); HGB - HEMOGLOBIN 13.8 g/dL (14.0-18.0); LYMPHOCYTES # (AUTO) 2.2 10^3/uL (1.5-3.5); LYMPHOCYTES % (AUTO) 30.4 %; MEAN CORPUSCULAR HEMOGLOBIN 32.2 pg (27.0-31.0); MEAN CORPUSCULAR HGB CONC 32.9 g/dL (32.0-36.0); MEAN CORPUSCULAR VOLUME 97.7 fL (80.0-94.0); MEAN PLATELET VOLUME 10.4 fL (7.4-11.4); MONOCYTES # (AUTO) 0.7 10^3/uL (0.0-1.0); MONOCYTES % (AUTO) 8.9 %; NEUTROPHILS % (AUTO) 54.9 %; PLT - PLATELET COUNT 207 10^3/uL (130-450); RED BLOOD COUNT 4.29 10^6/uL (4.70-6.10); RED CELL DISTRIBUTION WIDTH 13.2 % (12.0-15.0); WHITE BLOOD COUNT 7.3 x10^3/uL (4.8-10.8)
[2023-09-04 12:47] LABS: ESTIMATED AVERAGE GLUCOSE 160 mg/dL (70-100); HEMOGLOBIN A1c% 7.2 % (4.27-6.07)
[2023-09-04 12:52] LABS: ALBUMIN 4.2 g/dL (3.2-5.5); ALBUMIN/GLOBULIN RATIO 1.4 (1.0-2.2); BILIRUBIN,TOTAL 0.6 mg/dL (0.2-1.0); CALCIUM 9.5 mg/dL (8.5-10.3); POTASSIUM 4.4 mmol/L (3.5-4.5); TOTAL PROTEIN 7.3 g/dL (6.4-8.9)
== END 2023-09-04 07:16 | disposition home or self-care (01) ==
LOC: LAB.N 07:15
PROVIDERS: ATTEND Physician Assistant Medical
DX: I10 Essential (primary) hypertension (principal); E11.9 Type 2 diabetes mellitus without complications
CPT/HCPCS: 36415; 80053; 83036; 85025

== ENCOUNTER 2023-09-30 09:28 | Outpatient (CLI) | payer MEDICARE, OTHER ==
--- NOTE | 2023-09-30 13:29 | Ultrasound Report ---
PROCEDURE: Aorta Screening INDICATIONS: SMOKER TECHNIQUE: Real time scanning was performed of the aorta and iliac arteries, with image documentatio n. COMPARISON: None. FINDINGS: Aorta: Proximal aortic diameter measures 2.2 x 2.3 cm. Mid-aorta measures 1.8 x 1.7 cm. Distal aor tic diameter is 1.6 x 1.7 cm. Iliac arteries: Right common iliac artery measures 1 x 1.1 cm. Left common iliac artery measures 1. 4 x 1.4 cm. Scattered calcified plaque. IMPRESSION: 1.No abdominal aortic aneurysm. 2.Bilateral common iliac arteries are normal in caliber, where visualized. 3.Scattered calcified plaque. Recommended intervals for follow-up imaging of ectatic aortas and abdominal aortic aneurysms, per ACR consensus guidelines: 2.5-2.9 cm: 5 years 3.0-3.4 cm: 3 years 3.5-3.9 cm: 2 years 4.0-4.4 cm: 1 year 4.5-4.9 cm: 6 months + endovascular referral 5.0-5.5 cm: 3-6 months + endovascular referral Reviewed by: Boaz Shaw MD on 09/30/2023 1:27 PM PST Approved by: Boaz Shaw MD on 09/30/2023 1:27 PM PST Station ID: [id number]
--- NOTE | 2023-09-30 15:12 | CT Report ---
PROCEDURE: Lung Cancer Screen INDICATIONS: SMOKER TECHNIQUE: A CT scan of the chest was performed. Intravenous contrast media was not administered. Images were re corded and evaluated at appropriate window settings. Reformats: axial MIP of the chest, coronal and s agittal. For radiation dose reduction, the following was used: automated exposure control, adjustment of mA and/or kV according to patient size. COMPARISON: Low-dose chest CT on December 12, 2021. FINDINGS: Image quality: Excellent. Prior cancer history: No. Lungs and pleura: No pleural effusions. No pneumothorax. No suspicious pulmonary nodules which requi re follow up. Mild emphysema. Mediastinum: Heart size is normal. No pericardial effusion. No large vessel abnormality. No mediastin al adenopathy by size criteria. Severe 4 vessel coronary artery calcifications. Mild calcification o f the thoracic aorta. Chest wall and lower neck: Thyroid is unremarkable. No axillary or supraclavicular adenopathy by size . Bones: No aggressive osseous abnormality. Mild multilevel degenerative changes of the spine. Upper Abdomen: Limited noncontrast images demonstrate a simple cyst in the left hepatic lobe. Mild ca lcification of the abdominal aorta.. IMPRESSION: 1. No suspicious pulmonary nodules or consolidation. Lung RAD: 1 - Negative. Recommendation: Continue annual screening in 12 Months with LDCT 2. Severe 4 vessel coronary calcification. 3. Mild emphysema. Reviewed by: Boaz Shaw MD on 09/30/2023 3:10 PM PST Approved by: Boaz Shaw MD on 09/30/2023 3:10 PM PST Station ID: [id number]
== END 2023-09-30 09:29 | disposition home or self-care (01) ==
LOC: DI 09:28
PROVIDERS: ATTEND Physician Assistant Medical
DX: Z12.2 Encounter for screening for malignant neoplasm of respiratory organs (principal); Z13.6 Encounter for screening for cardiovascular disorders; I25.10 Atherosclerotic heart disease of native coronary artery without angina pectoris; J43.9 Emphysema, unspecified; F17.210 Nicotine dependence, cigarettes, uncomplicated

== ENCOUNTER 2023-12-03 09:13 | Emergency (ER) | payer MEDICARE, OTHER ==
--- NOTE | 2023-12-03 09:26 | ED Physician Documentation ---
PD HPI CHEST PAIN - Stated complaint Stated Complaint: CHEST PX - Chief complaint Chief Complaint: Cardiac - History obtained from History obtained from: Patient - History of Present Illness Timing - onset: How many weeks ago (3-4) Timing - onset during: Exertion (he states he does not get CP/dyspnea with light activity, just with brisk walking/exertion but has noted it occuring with shorter duration of it now. Still needs to be brisk but symptoms within 50-100 yards of brisk or uphill walking, not with regular or easyy activty.) Timing - duration: Minutes (the dyspnea/pressure will fade within minute or two of resting.) Timing - details: Abrupt onset, Intermittant. No: Still present Quality: Tightness, Aching Location: Substernal, Left chest Radiation: No: Jaw, Neck Improved by: Rest Worsened by: Exertion Associated symptoms: Shortness of air. No: Nausea, Feeling faint / dizzy, Palpitations Similar symptoms before: Has not had sx before (new in the past 3-4 weeks. Denies URI/flu in the preceding 1-2 months.) Review of Systems Constitutional: denies: Fever, Chills Nose: denies: Rhinorrhea / runny nose, Congestion Throat: denies: Sore throat Cardiac: reports: Chest pain / pressure. denies: Palpitations, Pedal edema, C surendra pain Respiratory: reports: Dyspnea. denies: Cough, Wheezing Neurologic: denies: Near syncope, Syncope PD PAST MEDICAL HISTORY - Past Medical History Past Medical History: Yes Cardiovascular: Hypertension, High cholesterol Respiratory: None Neuro: None Endocrine/Autoimmune: Type 2 diabetes : Benign prostate hypertrophy, Renal insuffiency HEENT: None Psych: None Musculoskeletal: None Derm: None - Past Surgical History Past Surgical History: No - Present Medications Home Medications: Ambulatory Orders Medication Instructions Recorded Confirmed Amlodipine Besylate 5 mg PO DAILY 03/23/19 12/03/23 Atorvastatin Calcium 40 mg PO QPM 03/23/19 12/03/23 Insulin Aspart [NovoLOG] 8 - 16 units SUBQ TIDWM 03/23/19 12/03/23 Insulin Glargine [Lantus Solostar] 30 units SUBQ DAILY 03/23/19 12/03/23 Losartan Potassium 100 mg PO DAILY 03/23/19 12/03/23 Albuterol Sulf [Ventolin Hfa 2 - 3 puffs INH QID #1 each 12/03/23 Inhaler] Metoprolol Succinate [Toprol Xl] 25 mg PO DAILY #30 tablet 12/03/23 Nitroglycerin [Nitrostat] 0.4 mg SL Q5MIN PRN #25 tablet 12/03/23 - Allergies Allergies/Adverse Reactions: Allergies Allergy/AdvReac Type Severity Reaction Status Date / Time No Known Drug Allergies Allergy Verified 12/03/23 09:20 - Living Situation Living Situation: reports: With family Living Arrangement: reports: At home - Social History Does the pt smoke?: Yes Smoking Status: Current every day smoker Does the pt have substance abuse?: No - Immunizations Immunizations are current?: Yes - POLST Patient has POLST: No PD ED PE NORMAL - Vitals Vital signs reviewed: Yes - General General: Alert and oriented X 3, No acute distress, Well developed/nourished - Cardiac Cardiac: RRR, No murmur - Respiratory Respiratory: No respiratory distress. No: Clear bilaterally (diffuse mild expiratory wheezing and someprolonged expiratory phase. ) - Abdomen Abdomen: Soft, Non tender - Derm Derm: Normal color, Warm and dry - Extremities Extremities: Normal ROM s pain, No edema Results - Vitals Vitals: Vital Signs - 24 hr 12/03/23 12/03/23 12/03/23 09:20 10:25 11:28 Temperature 36.4 C L Heart Rate 77 71 88 Respiratory 18 20 20 Rate Blood Pressure 161/87 H 133/73 H O2 Saturation 99 97 12/03/23 11:54 Temperature 36.6 C Heart Rate 82 Respiratory 22 Rate Blood Pressure 141/74 H O2 Saturation 99 Oxygen O2 Source Room air - EKG (time done) 09:21 EKG releavant findings:: EKG personally interpreted by author of this note. Relevant findings are: Rate: Rate (enter#) (68) Rhythm: NSR QRS: Poor R wave progression Ischemia: Other (moderate QRS anteriorly c/w mild early LVH and has secondary repol changes and poor r wave progression anteriorly. Consider ischemia but no CP since yesterday. ) - Labs Labs: Laboratory Tests 12/03/23 12/03/23 12/03/23 09:22 09:22 09:22 WBC 7.0 RBC 4.36 L Hgb 13.8 L Hct 42.0 MCV 96.3 H MCH 31.7 H MCHC 32.9 RDW 13.4 Plt Count 193 MPV 9.8 Neut # (Auto) 3.9 Lymph # (Auto) 2.3 [place] # (Auto) 0.6 Eos # (Auto) 0.2 Baso # (Auto) 0.1 Absolute Nucleated RBC 0.00 Nucleated RBC % 0.0 Sodium 140 Potassium 3.9 Chloride 108 Carbon Dioxide 26 Anion Gap 6.0 BUN 29 H Creatinine 1.8 H Estimated GFR (MDRD) 37 L Glucose 101 Calcium 9.5 Magnesium 1.6 L Total Bilirubin 0.6 AST 22 ALT 22 Alkaline Phosphatase 50 Troponin I High Sens 22.0 H* B-Natriuretic Peptide 51 Total Protein 7.3 Albumin 4.4 Globulin 2.9 Albumin/Globulin Ratio 1.5 Lipase 90 H - Rads (name of study) chest xray Relevant Findings:: Prelim report reviewed, EMP independent interpretation of test (no CHF nor infiltrates. ) PD Medical Decision Making - ED course Complexity details: reviewed results (ECG with some findings suggesting CAD. Does not appear acute ischemic per se. Trop is negative (minimal above normal with CP epidose last yesterday and in setting of mild renal insufficiency, I would say level is negative).), re-evaluated patient (he does not have any CP here still, stating it has ust been with brisk exertion. ), d/w design consultant (PCP SHERLY Olivares) ED course: His symptoms sound like new onset exertional angina, but he does had wheezing on exam and is a smoker. No Dx of COPD, but his exertional dyspnea could be pulomary instead. As such I am treating with Albuterol JOSÉ MIGUEL hurtado with starting low dose Metropolol, ASA, and PRN Nitroglycerin. This is in collaboration with his PCP with whom I talked directed prior to pt discharge. PCP will set up exercise stress testing. Departure - Departure Disposition: 01 Home, Self Care Clinical Impression: Chest pain, exertional, Wheezing Condition: Stable Record reviewed to determine appropriate education?: Yes Instructions: ED Dyspnea Shortness of Breath Follow-Up: Laura Olivares PA-C [Primary Care Provider] - Prescriptions: Nitroglycerin [Nitrostat] 0.4 mg SL Q5MIN PRN #25 tablet PRN Reason: Chest Pain Metoprolol Succinate [Toprol Xl] 25 mg PO DAILY #30 tablet Albuterol Sulf [Ventolin Hfa Inhaler] 2 - 3 puffs INH QID #1 each Comments: Your chest x-ray is clear with any signs of fluid buildup, pneumonia. Your heart size looks slightly enlarged. Your EKG also corresponds with us likely slightly enlarged heart. The EKG and blood test did not show any signs of acute heart injury nor heart failure. Your symptoms are concerning for potential angina which is a diminished blood flow to the heart. The way to test this is to reproduce the exertion and see if there is some symptoms and/or EKG changes that develop. This is called a exercise stress test for the heart. I talked with your primary care, SHERLY Chase, and she will set up a stress test for you. They will be in contact with you. On exam your chest your lung sounds also have wheezing in your shortness of breath and symptoms could be from an inflammatory aspect in your breathing and airways. I would also suggest you try an inhaler regularly over the next 2 to 3 weeks and see if that helps your symptoms. Meanwhile treating as if you are having some new angina, in addition to getting the stress test, I would start treating you with a baby aspirin daily and a low- dose beta-jessi called metoprolol. Your primary care provider is in agreement with this plan. I sent your prescriptions to your preferred pharmacy. Activity is okay with obviously stopping at the point of any symptoms and resting as needed. If you do have increasing symptoms with less degree of activity, that certainly follow-up sooner. I also wrote a prescription for medicine called nitroglycerin you can take if you have an episode of discomfort that does not improve with rest. Forms: PCP List Discharge Date/Time: 12/03/23 11:55
[2023-12-03 09:36] LABS: BASOPHILS # (AUTO) 0.1 10^3/uL (0.0-0.1); EOSINOPHILS # (AUTO) 0.2 10^3/uL (0.0-0.7); EOSINOPHILS % (AUTO) 3.1 %; HGB - HEMOGLOBIN 13.8 g/dL (14.0-18.0); LYMPHOCYTES # (AUTO) 2.3 10^3/uL (1.5-3.5); LYMPHOCYTES % (AUTO) 32.1 %; MEAN CORPUSCULAR HEMOGLOBIN 31.7 pg (27.0-31.0); MEAN CORPUSCULAR HGB CONC 32.9 g/dL (32.0-36.0); MEAN CORPUSCULAR VOLUME 96.3 fL (80.0-94.0); MEAN PLATELET VOLUME 9.8 fL (7.4-11.4); MONOCYTES # (AUTO) 0.6 10^3/uL (0.0-1.0); MONOCYTES % (AUTO) 8.6 %; NEUTROPHILS # (AUTO) 3.9 10^3/uL (1.5-6.6); NEUTROPHILS % (AUTO) 55.1 %; PLT - PLATELET COUNT 193 10^3/uL (130-450); RED BLOOD COUNT 4.36 10^6/uL (4.70-6.10); RED CELL DISTRIBUTION WIDTH 13.4 % (12.0-15.0)
[2023-12-03 09:52] LABS: MAGNESIUM 1.6 mg/dL (1.7-2.3)
--- NOTE | 2023-12-03 09:52 | XRAY Report ---
PROCEDURE: Chest 1V INDICATIONS: Chest pain TECHNIQUE: One view of the chest was acquired. COMPARISON: CT 09/30/2023 FINDINGS: Surgical changes and devices: None. Lungs and pleura: No dense consolidation or pleural effusion. Mediastinum: Borderline cardiomegaly. Bones and chest wall: Degenerative changes. IMPRESSION: No acute radiographic abnormality on this single view portable study. Reviewed by: Juan José Padilla MD on 12/03/2023 9:51 AM PDT Approved by: Juan José Padilla MD on 12/03/2023 9:51 AM PDT Station ID: [id number]
[2023-12-03 09:58] LABS: ALBUMIN 4.4 g/dL (3.2-5.5); ALBUMIN/GLOBULIN RATIO 1.5 (1.0-2.2); BILIRUBIN,TOTAL 0.6 mg/dL (0.2-1.0); CALCIUM 9.5 mg/dL (8.5-10.3); CREATININE 1.8 mg/dL (0.6-1.3); POTASSIUM 3.9 mmol/L (3.5-4.5); TOTAL PROTEIN 7.3 g/dL (6.4-8.9)
[2023-12-03] MEDS: ASPIRIN EC 81 MG TABLET PO STA (11:07)
[2023-12-03] MEDS: METOPROLOL SUCCINATE 25 MG TABLET PO STA (11:07)
[2023-12-03] MEDS: ALBUTEROL 1 PUFF INH STA (11:25)
[2023-12-03 12:02] VITALS: BP 141/74; O2SAT 99
== END 2023-12-03 11:55 | disposition home or self-care (01) ==
LOC: ED 09:13
DX: R07.89 Other chest pain (principal); R06.2 Wheezing; I10 Essential (primary) hypertension; E78.00 Pure hypercholesterolemia, unspecified; E11.9 Type 2 diabetes mellitus without complications; F17.200 Nicotine dependence, unspecified, uncomplicated; Z79.899 Other long term (current) drug therapy; Z79.4 Long term (current) use of insulin
CPT/HCPCS: 36415; 71045; 80053; 83690; 83735; 83880; 84484; 85025; 93005; 94640; 99284; A9270

== ENCOUNTER 2023-12-16 10:04 | Outpatient (CLI) | payer MEDICARE, OTHER | END 2023-12-16 23:59 | disposition short-term general hospital (02) | LOC: EMS 10:04 | DX: I21.3 ST elevation (STEMI) myocardial infarction of unspecified site (principal) | CPT/HCPCS: A0425; A0427 ==